=== PATIENT | male | born 1975 | race Caucasian/White ===

== ENCOUNTER 2023-05-27 13:41 | Emergency (ER) | payer OTHER ==
[2023-05-27] MEDS ORDERED: methylPREDNISolone Sodium Succinate 40 MG/1 ML SDV IM ONE (14:12)
== END 2023-05-27 14:31 | disposition home or self-care (01) ==
LOC: JP.ED 13:41
DX: L03.113 Cellulitis of right upper limb (principal)
CPT/HCPCS: 96372; 99282; J2920